=== PATIENT | male | born 1995 | race Caucasian/White ===

== ENCOUNTER → 2019-11-28 | Outpatient (CLI) | payer BC ==
--- NOTE | 2019-11-28 14:51 | Diagnostic Imaging Report ---
Left knee MRI without contrast. History: Knee pain. Trauma. Decreased range of motion. Pain not responding to conservative management Comparison: None. Technique: Multiplanar multi-sequence MRI of the knee without contrast. Findings: Medial compartment: No meniscal tear or cartilage abnormality. Mild sprain of the medial collateral ligament. The majority of the fibers are intact. Lateral compartment: No meniscal tear or cartilage abnormality. The LCL complex is normal. Intercondylar notch: Mild sprain of the anterior cruciate ligament. The majority of the fibers are intact. The posterior cruciate ligament is intact. Patellofemoral compartment: No chondromalacia or patellar dislocation. Extensor mechanism: The quadriceps and patellar tendons are normal. Other findings: There is a joint effusion and synovitis. There is no acute fracture, subluxation or avascular necrosis. Nonaggressive appearing bone lesion in the distal shaft of the femur medially. Mild nonspecific edema in Hoffa's fat inferior and lateral to the patellar bone. IMPRESSION: Mild sprain of the anterior cruciate ligament and medial collateral ligament. The majority of the fibers are intact. Signed by: Dr. Vj Cason M.D. on 11/28/2019 2:49 PM
== END ==
LOC: MRI 13:08
PROVIDERS: ATTEND Orthopaedic Surgery
DX: M25.562 Pain in left knee (principal)